=== PATIENT | male | born 1985 | race Caucasian/White ===

== ENCOUNTER 2022-10-07 10:37 | Emergency (ER) | payer OTHER | END 2022-10-07 11:40 | disposition home or self-care (01) | LOC: CSHERS 10:37 | DX: S61.211A Laceration without foreign body of left index finger without damage to nail, initial encounter (principal); F17.200 Nicotine dependence, unspecified, uncomplicated; W26.0XXA Contact with knife, initial encounter | CPT/HCPCS: 12001 ==